=== PATIENT | female | born 1950 | race Caucasian/White ===

== ENCOUNTER 2023-01-05 06:55 | Inpatient (IN) | payer BC ==
[2022-12-29 15:35] LABS: BASOPHILS % (AUTO) 0.4 % (0-1); EOSINOPHILS # (AUTO) 0.2 X10'3 (0-0.9); EOSINOPHILS % (AUTO) 2.5 % (0-6); LYMPHOCYTES # (AUTO) 1.3 X10'3 (1.1-4.8); LYMPHOCYTES % (AUTO) 19.1 % (21-51); MEAN CORPUSCULAR HEMOGLOBIN 31.5 PG (27.0-31.0); MEAN CORPUSCULAR HGB CONC 33.1 g/dL (33.0-36.5); MONOCYTES # (AUTO) 0.8 X10'3 (0-0.9); MONOCYTES % (AUTO) 11.7 % (2-12); NEUTROPHILS # (AUTO) 4.4 X10'3 (1.8-7.7); NEUTROPHILS % (AUTO) 66.3 % (42-75); PRE OP HEMATOCRIT 44.8 % (35.0-45.0); PRE OP HEMOGLOBIN 14.9 g/dL (12.0-16.0); PRE OP PLATELET COUNT 160 X10'3 (140-440); PRE OP WHITE BLOOD COUNT 6.6 10'3 (4.8-10.8); RED BLOOD COUNT 4.72 X10'6 (4.20-5.60); RED CELL DISTRIBUTION WIDTH 13.5 % (11.5-14.5)
[2022-12-29 15:55] LABS: ALBUMIN 3.8 G/DL (3.4-5.0); ALKALINE PHOSPHATASE 79 IU/L (46-116); BLOOD UREA NITROGEN 11 MG/DL (7-18); BUN/CREATININE RATIO 15.9 (10.0-20.0); CALCIUM 9.4 MG/DL (8.5-10.1); CHLORIDE 103 MMOL/L (99-107); CREATININE 0.69 MG/DL (0.40-0.90); PRE OP ALT 16 U/L (30-65); PRE OP ANION GAP 8 (8-16); PRE OP AST 13 U/L (10-37); PRE OP BILIRUB, TOTAL 0.5 MG/DL (0.0-1.0); PRE OP GLUCOSE 100 MG/DL (70-104); PRE OP POTASSIUM 4.4 MMOL/L (3.4-5.1); PRE OP SODIUM 142 MMOL/L (135-145); THYROID STIMULATING HORMONE 0.68 ulU/ml (0.34-4.50); TOTAL CARBON DIOXIDE 30.6 MMOL/L (24-32); TOTAL PROTEIN 7.5 G/DL (6.4-8.2); eGFR 84 ML/MIN
[~2023-01-05] VITALS: Ht 167.6 cm; Wt 118.3 kg
[2023-01-05] VITALS (29 sets, daily range): BP systolic 97–128; BP diastolic 61–98; PULSE 61–103; RESP 10–24; TEMP 96.7–98.6; O2SAT 61–97
[~2023-01-05 06:55] MED LIST: ALBU8HFA PO; CELE200C PO; CHOL100046 PO; CITA20TA28 PO; GABA300C PO; LEVO175T7 PO; MVI; OXYB5TAB29 PO; clindamycin-Cleocin 900mg/D5W 50 ML IV ONE; famotidine 20mg tablet PO ONE; gentamicin inj 430 MG in normal saline 100ml IV soln 89.25 ML IV ONE; ringers solution, lacted 1,000 ML IV SCH
[2023-01-05] MEDS ORDERED: LIDOcaine 1% 30ml preserv. free vial ONE (09:06)
[2023-01-05] MEDS ORDERED: BUPIVAcaine/PF 2.5 mg/ml (0.25%) 30ml vial ONE (09:06)
[2023-01-05] MEDS ORDERED: sevoflurane 250ml liquid IH ONE (09:16)
[2023-01-05] MEDS ORDERED: PHENYLephrine 10mg/ml 5ml injection IV ONE (09:16)
[2023-01-05] MEDS ORDERED: dexamethasone sod phosphate 10mg/ml inj ONE (09:16)
[2023-01-05] MEDS ORDERED: dexmedetomidine 200mcg/2ml inj. IV ONE (09:16)
[2023-01-05] MEDS ORDERED: midazolam 1 mg/ML 2ml injection ONE (09:24)
[2023-01-05] MEDS ORDERED: fentaNYL/PF 50MCG/1 ML 2ML syringe ONE ×2 (09:24→11:17)
[2023-01-05] MEDS ORDERED: rocuronium 10mg/ml inj IV ONE ×2 (09:30→10:30)
[2023-01-05] MEDS ORDERED: ondansetron/PF 4mg/2ml inj ONE (09:30)
[2023-01-05] MEDS ORDERED: propofol inj 20 ML IV ONE (09:30)
[2023-01-05] MEDS ORDERED: LIDOcaine 2% (20mg/ml) 5ml vial ONE (09:30)
[2023-01-05] MEDS ORDERED: sugammadex 200mg/2ml injection IV ONE (09:54)
[2023-01-05] MEDS ORDERED: morphine 4 MG/ML inj SYRINge IV PRN (10:05)
[2023-01-05] MEDS ORDERED: ondansetron/PF 4mg/2ml inj IV PRN (10:05)
[2023-01-05] MEDS ORDERED: morphine 2 MG/ML inj. syringe IV PRN (10:05)
[2023-01-05] MEDS ORDERED: ringers solution, lacted 1,000 ML IV SCH (10:05)
[2023-01-05] MEDS ORDERED: enalaprilat dihydrate 2.5mg/2ml vial IV PRN (10:05)
[2023-01-05] MEDS ORDERED: fentaNYL/PF 50MCG/1 ML 2ML syringe IV PRN ×2 (10:05)
[2023-01-05] MEDS ORDERED: hydrALAZINE 20mg/ml inj. IV PRN (10:05)
[2023-01-05] MEDS ORDERED: ePHEDrine 50MG/ML INJ. ONE (10:07)
[2023-01-05] MEDS ORDERED: INDOCYANINE GREEN 25 MG/10 ML VIAL IV ONE (11:33)
[2023-01-05] MEDS ORDERED: naloxone 0.4 mg/ml inj IV PRN (13:00)
[2023-01-05] MEDS ORDERED: HYDROcodone/acetaminophen 5mg/325mg tablet PO PRN (13:00)
[2023-01-05] MEDS ORDERED: albuterol 2.5 MG/3 ML nebule NEB PRN (13:20)
--- NOTE | 2023-01-05 17:03 | NUR ---
PATIENT HAS MET ALL CRITERIA FOR TRANSFER TO THE SURGICAL/RAUL/PCU/ORTHO/ICU FLOOR. VSS. DRESSINGS INTACT. BED LOW, CALL LIGHT PRESENT AND 2 RAILS UP. RN PRESENT TO ACCEPT CARE OF PATIENT AND REPORT HAS BEEN CALLED. ALL QUESTIONS ANSWERED TO ACCEPTING RN.
--- NOTE | 2023-01-05 17:03 | NUR ---
PATIENT HAS MET ALL CRITERIA FOR TRANSFER TO ORTHO FLOOR. VSS. DRESSINGS INTACT. BED LOW, CALL LIGHT PRESENT AND 2 RAILS UP. RN PRESENT TO ACCEPT CARE OF PATIENT AND REPORT HAS BEEN CALLED. ALL QUESTIONS ANSWERED TO ACCEPTING RN. Addendum: 01/05/23 at 1709 by Chris Marquez RN Amended: Links added.
--- NOTE | 2023-01-05 17:30 | NUR ---
Patient in room ORTHO 4013. I have received report from recovery and had the opportunity to ask questions and assume patient care.
[2023-01-05] MEDS: ringers solution, lacted 1,000 ML IV SCH ×2 (18:55→22:59)
--- NOTE | 2023-01-05 19:02 | NUR ---
Problems reprioritized. Patient report given, questions answered & plan of care reviewed with Frances EMANUEL.
[2023-01-05] MEDS: gabapentin 300mg capsule PO SCH (21:23)
[2023-01-05] MEDS: HYDROcodone/acetaminophen 10/325mg tab PO PRN (21:27)
[2023-01-06] VITALS (8 sets, daily range): BP systolic 101–125; BP diastolic 48–66; PULSE 81–99; RESP 15–19; TEMP 97.7–98.6; O2SAT 90–97
--- NOTE | 2023-01-06 06:39 | NUR ---
Problems reprioritized. Patient report given, questions answered & plan of care reviewed with Sania EMANUEL. Addendum: 01/06/23 at 0639 by Frances Sharpe RN Amended: Links added.
--- NOTE | 2023-01-06 06:55 | NUR ---
Patient in room ORTHO 4013. I have received report from carla EMANUEL and had the opportunity to ask questions and assume patient care.
[2023-01-06 07:15] LABS: BASOPHILS % (AUTO) 0.1 % (0-1); EOSINOPHILS % (AUTO) 0 % (0-6); HEMATOCRIT 39.4 % (35.0-45.0); HEMOGLOBIN 12.8 g/dl (12.0-16.0); LYMPHOCYTES # (AUTO) 0.9 X10'3 (1.1-4.8); LYMPHOCYTES % (AUTO) 5.8 % (21-51); MEAN CORPUSCULAR HEMOGLOBIN 31.3 PG (27.0-31.0); MEAN CORPUSCULAR HGB CONC 32.6 g/dL (33.0-36.5); MEAN CORPUSCULAR VOLUME 96.1 FL (78-98); MEAN PLATELET VOLUME 9.1 FL (7.4-10.4); MONOCYTES # (AUTO) 1.6 X10'3 (0-0.9); MONOCYTES % (AUTO) 10.6 % (2-12); NEUTROPHILS # (AUTO) 12.6 X10'3 (1.8-7.7); NEUTROPHILS % (AUTO) 83.5 % (42-75); PLATELET COUNT 138 X10'3 (140-440); RED CELL DISTRIBUTION WIDTH 13.4 % (11.5-14.5); WHITE BLOOD COUNT 15.1 X10'3 (4.5-11.0)
[2023-01-06 07:32] LABS: ANION GAP 6 (8-16); BLOOD UREA NITROGEN 10 MG/DL (7-18); BUN/CREATININE RATIO 15.6 (10.0-20.0); CALCIUM 8.5 MG/DL (8.5-10.1); CHLORIDE 102 MMOL/L (99-107); CREATININE 0.64 MG/DL (0.40-0.90); GLUCOSE 123 MG/DL (70-104); POTASSIUM 4.7 MMOL/L (3.5-5.1); SODIUM 142 MMOL/L (135-145); TOTAL CARBON DIOXIDE 34.5 MMOL/L (24-32); eCRCL 77 ML/MIN; eGFR > 90 ML/MIN
[2023-01-06] MEDS: citalopram 20mg tablet PO SCH (08:46)
[2023-01-06] MEDS: enoxaparin 40mg/0.4ml syringe SQ SCH (08:47)
[2023-01-06] MEDS ORDERED: HYDR-3964 PO (08:55)
[2023-01-06] MEDS: ringers solution, lacted 1,000 ML IV SCH ×2 (09:00→20:16)
[2023-01-06] MEDS: levoTHYROXINE 175mcg tablet PO SCH (13:01)
[2023-01-06] MEDS: HYDROcodone/acetaminophen 10/325mg tab PO PRN ×2 (13:07→20:17)
[2023-01-06] MEDS ORDERED: HYDROmorphone 1 mg/ml syringe IV PRN (15:50)
[2023-01-06] MEDS ORDERED: HYDROmorphone inj. 0.5 MG/0.5 ML DISP.SYRIN IV PRN (18:45)
--- NOTE | 2023-01-06 18:48 | NUR ---
patient encouraged and managed to ambulate 150ft. Very painful. Order got from Dr warner for dilaudid 1mg. Patient received med and fell asleep. O2 sats dropped in 70's ,. recovered quickly when woken up and given o2@6L. 95%. turned down to 4L currently as napping. O2 sats 94%. Patient appears stable at this time. report given to carla EMANUEL Addendum: 01/06/23 at 1851 by Sania Phan RN wrong patient Addendum: 01/06/23 at 185 by Sania Phan RN correction right patient for above note.
--- NOTE | 2023-01-06 18:54 | NUR ---
correction to previous note this was the right patient .
[2023-01-06] MEDS: gabapentin 300mg capsule PO SCH (20:16)
[2023-01-07] VITALS (9 sets, daily range): BP systolic 105–125; BP diastolic 56–73; PULSE 86–103; RESP 16–20; TEMP 97.3–98.2; O2SAT 92–98
--- NOTE | 2023-01-07 04:00 | NUR ---
Pts IV on left had infiltrated while pt was sleeping. IV removed, hand puffy which was elevated on a pillow. CSM present. Pt refuses to have a new IV placed at this time. Addendum: 01/07/23 at 0653 by Frances Sharpe RN Amended: Links added.
[2023-01-07] MEDS: ringers solution, lacted 1,000 ML IV SCH ×2 (05:00→15:00)
[2023-01-07 06:37] LABS: BASOPHILS % (AUTO) 0.2 % (0-1); EOSINOPHILS # (AUTO) 0.1 X10'3 (0-0.9); EOSINOPHILS % (AUTO) 0.6 % (0-6); HEMATOCRIT 37.5 % (35.0-45.0); HEMOGLOBIN 12.4 g/dl (12.0-16.0); LYMPHOCYTES % (AUTO) 9.5 % (21-51); MEAN CORPUSCULAR HEMOGLOBIN 31.8 PG (27.0-31.0); MEAN CORPUSCULAR HGB CONC 33.2 g/dL (33.0-36.5); MEAN CORPUSCULAR VOLUME 95.9 FL (78-98); MEAN PLATELET VOLUME 9.5 FL (7.4-10.4); MONOCYTES # (AUTO) 1.5 X10'3 (0-0.9); MONOCYTES % (AUTO) 13.9 % (2-12); NEUTROPHILS # (AUTO) 8.3 X10'3 (1.8-7.7); NEUTROPHILS % (AUTO) 75.8 % (42-75); PLATELET COUNT 128 X10'3 (140-440); RED BLOOD COUNT 3.91 X10'6 (4.20-5.60); RED CELL DISTRIBUTION WIDTH 13.4 % (11.5-14.5)
--- NOTE | 2023-01-07 06:39 | NUR ---
Patient in room ORTHO 4013. I have received report from [employer] and had the opportunity to ask questions and assume patient care.
[2023-01-07 06:40] LABS: ALBUMIN 2.9 G/DL (3.4-5.0); ANION GAP 1 (8-16); BLOOD UREA NITROGEN 8 MG/DL (7-18); BUN/CREATININE RATIO 11.6 (10.0-20.0); CALCIUM 8.6 MG/DL (8.5-10.1); CHLORIDE 100 MMOL/L (99-107); CREATININE 0.69 MG/DL (0.40-0.90); GLUCOSE 114 MG/DL (70-104); POTASSIUM 4.2 MMOL/L (3.5-5.1); SODIUM 138 MMOL/L (135-145); TOTAL CARBON DIOXIDE 36.7 MMOL/L (24-32); eCRCL 71 ML/MIN; eGFR 84 ML/MIN
--- NOTE | 2023-01-07 06:45 | NUR ---
Problems reprioritized. Patient report given, questions answered & plan of care reviewed with Sabra EMANUEL. Addendum: 01/07/23 at 0645 by Frances Sharpe RN Amended: Links added.
[2023-01-07] MEDS: levoTHYROXINE 175mcg tablet PO SCH (07:46)
[2023-01-07] MEDS: enoxaparin 40mg/0.4ml syringe SQ SCH (07:46)
[2023-01-07] MEDS: citalopram 20mg tablet PO SCH (07:46)
[2023-01-07] MEDS: HYDROcodone/acetaminophen 10/325mg tab PO PRN ×2 (14:06→19:48)
[2023-01-07] MEDS: gabapentin 300mg capsule PO SCH (19:48)
[2023-01-08] VITALS (10 sets, daily range): BP systolic 98–153; BP diastolic 44–94; PULSE 57–90; RESP 15–20; TEMP 97.4–99.2; O2SAT 94–99
--- NOTE | 2023-01-08 06:00 | NUR ---
Patient in room ORTHO 4013. I have received report from [employer] and had the opportunity to ask questions and assume patient care.
--- NOTE | 2023-01-08 06:11 | NUR ---
Problems reprioritized. Patient report given, questions answered & plan of care reviewed with Sabra Gregory Addendum: 01/08/23 at 0612 by Frances Sharpe RN Amended: Links added.
[2023-01-08 06:40] LABS: BASOPHILS % (AUTO) 0.4 % (0-1); EOSINOPHILS # (AUTO) 0.2 X10'3 (0-0.9); EOSINOPHILS % (AUTO) 1.9 % (0-6); HEMATOCRIT 37.9 % (35.0-45.0); HEMOGLOBIN 12.6 g/dl (12.0-16.0); LYMPHOCYTES # (AUTO) 0.9 X10'3 (1.1-4.8); LYMPHOCYTES % (AUTO) 9.5 % (21-51); MEAN CORPUSCULAR HEMOGLOBIN 31.7 PG (27.0-31.0); MEAN CORPUSCULAR HGB CONC 33.2 g/dL (33.0-36.5); MEAN CORPUSCULAR VOLUME 95.4 FL (78-98); MEAN PLATELET VOLUME 9.6 FL (7.4-10.4); MONOCYTES # (AUTO) 1.2 X10'3 (0-0.9); MONOCYTES % (AUTO) 12.4 % (2-12); NEUTROPHILS # (AUTO) 7.4 X10'3 (1.8-7.7); NEUTROPHILS % (AUTO) 75.8 % (42-75); PLATELET COUNT 128 X10'3 (140-440); RED BLOOD COUNT 3.97 X10'6 (4.20-5.60); RED CELL DISTRIBUTION WIDTH 13.1 % (11.5-14.5); WHITE BLOOD COUNT 9.7 X10'3 (4.5-11.0)
[2023-01-08 06:51] LABS: ALBUMIN 2.8 G/DL (3.4-5.0); ANION GAP 4 (8-16); BLOOD UREA NITROGEN 7 MG/DL (7-18); BUN/CREATININE RATIO 12.3 (10.0-20.0); CALCIUM 8.9 MG/DL (8.5-10.1); CHLORIDE 102 MMOL/L (99-107); CREATININE 0.57 MG/DL (0.40-0.90); GLUCOSE 113 MG/DL (70-104); SODIUM 142 MMOL/L (135-145); TOTAL CARBON DIOXIDE 36.1 MMOL/L (24-32); eCRCL 86 ML/MIN; eGFR > 90 ML/MIN
[2023-01-08 06:56] LABS: POTASSIUM 4.2 MMOL/L (3.5-5.1)
[2023-01-08] MEDS: ringers solution, lacted 1,000 ML IV SCH (06:56)
[2023-01-08] MEDS: levoTHYROXINE 175mcg tablet PO SCH (09:37)
[2023-01-08] MEDS: citalopram 20mg tablet PO SCH (09:37)
[2023-01-08] MEDS: enoxaparin 40mg/0.4ml syringe SQ SCH (09:37)
[2023-01-08] MEDS: HYDROcodone/acetaminophen 10/325mg tab PO PRN ×3 (09:40→20:18)
--- NOTE | 2023-01-08 18:07 | NUR ---
Problems reprioritized. Patient report given, questions answered & plan of care reviewed with
[2023-01-08] MEDS: gabapentin 300mg capsule PO SCH (20:14)
[2023-01-09] VITALS (7 sets, daily range): BP systolic 100–120; BP diastolic 49–73; PULSE 62–117; RESP 16–22; TEMP 97.4–98.8; O2SAT 94–98
[2023-01-09] MEDS: HYDROcodone/acetaminophen 10/325mg tab PO PRN (03:46)
--- NOTE | 2023-01-09 06:22 | NUR ---
Problems reprioritized. Patient report given, questions answered & plan of care reviewed with WAYLON SCHREIBER.
--- NOTE | 2023-01-09 06:33 | NUR ---
Patient in room ORTHO 4013. I have received report from ADELFO Soto and had the opportunity to ask questions and assume patient care.
[2023-01-09 07:02] LABS: BASOPHILS % (AUTO) 0.3 % (0-1); EOSINOPHILS # (AUTO) 0.1 X10'3 (0-0.9); EOSINOPHILS % (AUTO) 0.9 % (0-6); HEMATOCRIT 41.2 % (35.0-45.0); HEMOGLOBIN 13.7 g/dl (12.0-16.0); LYMPHOCYTES # (AUTO) 0.6 X10'3 (1.1-4.8); LYMPHOCYTES % (AUTO) 5.5 % (21-51); MEAN CORPUSCULAR HEMOGLOBIN 31.6 PG (27.0-31.0); MEAN CORPUSCULAR HGB CONC 33.3 g/dL (33.0-36.5); MEAN CORPUSCULAR VOLUME 94.9 FL (78-98); MEAN PLATELET VOLUME 10.3 FL (7.4-10.4); MONOCYTES # (AUTO) 1.4 X10'3 (0-0.9); MONOCYTES % (AUTO) 13.4 % (2-12); NEUTROPHILS # (AUTO) 8.5 X10'3 (1.8-7.7); NEUTROPHILS % (AUTO) 79.9 % (42-75); PLATELET COUNT 158 X10'3 (140-440); RED BLOOD COUNT 4.34 X10'6 (4.20-5.60); WHITE BLOOD COUNT 10.6 X10'3 (4.5-11.0)
[2023-01-09 07:20] LABS: ALBUMIN 2.9 G/DL (3.4-5.0); ANION GAP 4 (8-16); BLOOD UREA NITROGEN 8 MG/DL (7-18); BUN/CREATININE RATIO 12.5 (10.0-20.0); CALCIUM 9.5 MG/DL (8.5-10.1); CHLORIDE 101 MMOL/L (99-107); CREATININE 0.64 MG/DL (0.40-0.90); GLUCOSE 144 MG/DL (70-104); POTASSIUM 3.5 MMOL/L (3.5-5.1); SODIUM 140 MMOL/L (135-145); TOTAL CARBON DIOXIDE 35.1 MMOL/L (24-32); eCRCL 77 ML/MIN; eGFR > 90 ML/MIN
[2023-01-09] MEDS: levoTHYROXINE 175mcg tablet PO SCH (08:12)
[2023-01-09] MEDS: citalopram 20mg tablet PO SCH (08:12)
[2023-01-09] MEDS: enoxaparin 40mg/0.4ml syringe SQ SCH (08:13)
[2023-01-09] MEDS: ketorolac tromethamine 15mg/ml inj. IV SCH ×2 (15:10→20:38)
--- NOTE | 2023-01-09 18:00 | NUR ---
I have reviewed and agree with interventions, assessments, and documentation by Raul Spivey LVN.
--- NOTE | 2023-01-09 19:45 | NUR ---
Agree with Marivel Javier LVn physical assessment.
[2023-01-09] MEDS: gabapentin 300mg capsule PO SCH (20:09)
[2023-01-10] VITALS (9 sets, daily range): BP systolic 91–118; BP diastolic 42–73; PULSE 74–98; RESP 16–19; TEMP 97.9–98.9; O2SAT 93–96
[2023-01-10] MEDS: ketorolac tromethamine 15mg/ml inj. IV SCH ×4 (02:06→21:14)
--- NOTE | 2023-01-10 04:40 | NUR ---
Patient in room ORTHO 4013. I have received report from Raul CONNORS and had the opportunity to ask questions and assume patient care.
--- NOTE | 2023-01-10 04:46 | NUR ---
Problems reprioritized. Patient report given, questions answered & plan of care reviewed with WAYLON Sanders.
[2023-01-10 06:29] LABS: BASOPHILS % (AUTO) 0.4 % (0-1); EOSINOPHILS # (AUTO) 0.4 X10'3 (0-0.9); EOSINOPHILS % (AUTO) 4.3 % (0-6); HEMATOCRIT 38.9 % (35.0-45.0); HEMOGLOBIN 12.9 g/dl (12.0-16.0); LYMPHOCYTES % (AUTO) 11.7 % (21-51); MEAN CORPUSCULAR HEMOGLOBIN 31.2 PG (27.0-31.0); MEAN CORPUSCULAR HGB CONC 33.1 g/dL (33.0-36.5); MEAN CORPUSCULAR VOLUME 94.3 FL (78-98); MEAN PLATELET VOLUME 9.8 FL (7.4-10.4); MONOCYTES % (AUTO) 12.1 % (2-12); NEUTROPHILS # (AUTO) 6.2 X10'3 (1.8-7.7); NEUTROPHILS % (AUTO) 71.5 % (42-75); PLATELET COUNT 156 X10'3 (140-440); RED BLOOD COUNT 4.12 X10'6 (4.20-5.60); WHITE BLOOD COUNT 8.6 X10'3 (4.5-11.0)
[2023-01-10 06:36] LABS: ALBUMIN 2.7 G/DL (3.4-5.0); ANION GAP 3 (8-16); BLOOD UREA NITROGEN 12 MG/DL (7-18); BUN/CREATININE RATIO 16.2 (10.0-20.0); CHLORIDE 103 MMOL/L (99-107); CREATININE 0.74 MG/DL (0.40-0.90); GLUCOSE 106 MG/DL (70-104); POTASSIUM 3.6 MMOL/L (3.5-5.1); SODIUM 141 MMOL/L (135-145); TOTAL CARBON DIOXIDE 34.7 MMOL/L (24-32); eCRCL 66 ML/MIN; eGFR 78 ML/MIN
[2023-01-10] MEDS: levoTHYROXINE 175mcg tablet PO SCH (07:35)
[2023-01-10] MEDS: citalopram 20mg tablet PO SCH (07:35)
[2023-01-10] MEDS: enoxaparin 40mg/0.4ml syringe SQ SCH (07:36)
--- NOTE | 2023-01-10 12:28 | NUR ---
Initial: Pt is currently POD #4 s/p laparoscopic right hemicolectomy for colorectal cancer per EMR. Pt is continues on a full liquid diet with average PO intake of 50-75% for 5 meals. Pt seen at bedside and states she is hungry and would like solid food however is agreeable to drinking chocolate Ensure TIDWM to better meet estimated needs; MD notified. Pt states her lack of appetite may be due to her current medication and feeling sleepy often. LBM on 01/10 per EMR. Will continue to monitor and make recommendations as appropriate. Recommendations: 1.Advance diet as medically able to low fiber diet 2.Ensure Enlive Chocolate TIDWM; pending physician approval 3.Bowel care per physician 4.Weekly wts Addendum: 01/10/23 at [address] Amended: Links added.
[2023-01-10] MEDS ORDERED: lactose-reduced food (Ensure Enlive) - 237ml bottle PO SCH (13:00)
--- NOTE | 2023-01-10 14:00 | NUR ---
Fran't able to give this patient her toradol due to charge nurse having patients. Gave patient PO pain medication in stead
[2023-01-10] MEDS: HYDROcodone/acetaminophen 10/325mg tab PO PRN ×2 (16:08→21:14)
--- NOTE | 2023-01-10 18:46 | NUR ---
Problems reprioritized. Patient report given, questions answered & plan of care reviewed with Za Vaca
--- NOTE | 2023-01-10 18:48 | NUR ---
Patient in room ORTHO 4013. I have received report from WAYLON Sanders and had the opportunity to ask questions and assume patient care. Patient resting comfortably on bed, just finished dinner and has no concerns at this time. I will continue to monitor.
[2023-01-10] MEDS: gabapentin 300mg capsule PO SCH (21:20)
[2023-01-11] MEDS: ketorolac tromethamine 15mg/ml inj. IV SCH ×2 (02:18→08:32)
[2023-01-11 06:00] VITALS: BP 95/47; PULSE 57; RESP 20; TEMP 97.8; O2SAT 96
--- NOTE | 2023-01-11 06:00 | NUR ---
Patient in room ORTHO 4013. I have received report from Za Paulson RN and had the opportunity to ask questions and assume patient care.
--- NOTE | 2023-01-11 06:23 | NUR ---
Problems reprioritized. Patient report given, questions answered & plan of care reviewed with ADELFO Sanders.
[2023-01-11 07:00] VITALS: RESP 20; O2SAT 96
[2023-01-11] MEDS: enoxaparin 40mg/0.4ml syringe SQ SCH (07:41)
[2023-01-11] MEDS: levoTHYROXINE 175mcg tablet PO SCH (07:41)
[2023-01-11] MEDS: citalopram 20mg tablet PO SCH (07:41)
[2023-01-11 10:00] VITALS: BP 102/68; PULSE 90; RESP 18; TEMP 98.6; O2SAT 94
[2023-01-11 10:47] VITALS: PULSE 86; RESP 16; O2SAT 92
--- NOTE | 2023-01-11 11:30 | NUR ---
I have reviewed and agree with interventions, assessments, and documentation by Marilyn Zamora LVN.
--- NOTE | 2023-01-11 12:30 | NUR ---
Patient discharged home today. All instructions were explained and questions answered. IV removed and all belongings were gathered. Patient A&Ox4 and appropriate for discharge. Patient wheeled downstairs and into private vehicle.
== END 2023-01-11 12:50 | disposition home or self-care (01) | DRG 330 ==
LOC: PAS IN 06:55 → ORTHO 4S 17:25
PROVIDERS: ADMIT Surgery; ATTEND Surgery
PROC: 0WQF0ZZ Repair Abdominal Wall, Open Approach (ICD-10-PCS; 2023-01-05)
PROC: 8E0W4CZ Robotic Assisted Procedure of Trunk Region, Percutaneous Endoscopic Approach (ICD-10-PCS; 2023-01-05)
PROC: 0DTF4ZZ Resection of Right Large Intestine, Percutaneous Endoscopic Approach (ICD-10-PCS; principal; 2023-01-05 09:16)
DX: C18.2 Malignant neoplasm of ascending colon (principal); Z68.41 Body mass index [BMI] 40.0-44.9, adult; K42.9 Umbilical hernia without obstruction or gangrene; R09.02 Hypoxemia; Z79.899 Other long term (current) drug therapy; E66.01 Morbid (severe) obesity due to excess calories
CPT/HCPCS: 36415; 74018; 80048; 80053; 82948; 84443; 85025; 86885; 86900; 86901; 87081; 88309; 94640; 94760; 97530; 97535; A4215; A4349; A4615; A4618; A5200; A6212; A6213; A6258; A6449; C1758; G0378; J1100; J1170; J1580; J1650; J1885; J2250; J2270; J2370; J2405; J2704; J3010; J3490; J7120

== ENCOUNTER 2023-10-13 13:09 | Emergency (ER) | payer BC ==
[~2023-10-13] VITALS: Ht 167.6 cm; Wt 119.1 kg
[~2023-10-13 13:09] MED LIST changes: +HYDR-3964 PO; -clindamycin-Cleocin 900mg/D5W 50 ML IV ONE; -famotidine 20mg tablet PO ONE; -gentamicin inj 430 MG in normal saline 100ml IV soln 89.25 ML IV ONE; -ringers solution, lacted 1,000 ML IV SCH
[2023-10-13 13:29] VITALS: TEMP 98.6
[2023-10-13 13:56] LABS: BASOPHILS % (AUTO) 0.5 % (0-1); EOSINOPHILS # (AUTO) 0.2 X10'3 (0-0.9); EOSINOPHILS % (AUTO) 2.6 % (0-6); HEMATOCRIT 45.2 % (35.0-45.0); LYMPHOCYTES # (AUTO) 1.1 X10'3 (1.1-4.8); LYMPHOCYTES % (AUTO) 17.3 % (21-51); MEAN CORPUSCULAR HEMOGLOBIN 32.1 PG (27.0-31.0); MEAN CORPUSCULAR HGB CONC 33.3 g/dL (33.0-36.5); MEAN CORPUSCULAR VOLUME 96.5 FL (78-98); MEAN PLATELET VOLUME 8.9 FL (7.4-10.4); MONOCYTES # (AUTO) 0.7 X10'3 (0-0.9); MONOCYTES % (AUTO) 11.3 % (2-12); NEUTROPHILS # (AUTO) 4.4 X10'3 (1.8-7.7); NEUTROPHILS % (AUTO) 68.3 % (42-75); PLATELET COUNT 153 X10'3 (140-440); RED BLOOD COUNT 4.68 X10'6 (4.20-5.60); RED CELL DISTRIBUTION WIDTH 13.1 % (11.5-14.5); WHITE BLOOD COUNT 6.5 X10'3 (4.5-11.0)
[2023-10-13 14:18] LABS: ALBUMIN 3.7 G/DL (3.4-5.0); ANION GAP 6 (8-16); BLOOD UREA NITROGEN 13 MG/DL (7-18); CALCIUM 9.5 MG/DL (8.5-10.1); CHLORIDE 104 MMOL/L (99-107); CREATININE 0.59 MG/DL (0.40-0.90); GLUCOSE 104 MG/DL (70-104); POTASSIUM 3.9 MMOL/L (3.5-5.1); PRO BRAIN NATRIURETIC PEPTIDE 113 PG/ML (0-125); SODIUM 140 MMOL/L (135-145); TOTAL CARBON DIOXIDE 29.6 MMOL/L (24-32); eCRCL 82 ML/MIN; eGFR > 90 ML/MIN
[2023-10-13 17:44] LABS: D-DIMER 0.87 MG/L FEU (0-0.50)
[2023-10-13] MEDS ORDERED: iohexol 350MG/ML 100ml bottle IV ONE (18:02)
[2023-10-13 21:10] VITALS: BP 126/92; PULSE 78; RESP 16; O2SAT 91
== END 2023-10-13 21:08 | disposition home or self-care (01) ==
LOC: ER 13:10
DX: R94.31 Abnormal electrocardiogram [ECG] [EKG] (principal); G47.33 Obstructive sleep apnea (adult) (pediatric); R79.1 Abnormal coagulation profile; Z88.0 Allergy status to penicillin; Z79.2 Long term (current) use of antibiotics; Z79.899 Other long term (current) drug therapy
CPT/HCPCS: 36415; 71045; 71275; 80048; 83880; 84484; 85025; 85379; 93005; 99285; J3490; Q9967

== ENCOUNTER 2025-04-07 11:14 | Emergency (ER) | payer BC ==
[~2025-04-07] VITALS: Ht 167.6 cm; Wt 112.4 kg
[~2025-04-07 11:14] MED LIST changes: +CITA-178 PO; -CITA20TA28 PO
[2025-04-07 11:22] VITALS: TEMP 97.2
[2025-04-07 12:23] LABS: MEAN PLATELET VOLUME 8.9 FL (7.4-10.4); RED CELL DISTRIBUTION WIDTH 13.0 % (11.5-14.5)
[2025-04-07 12:39] LABS: CREATININE 0.81 MG/DL (0.40-0.90); TOTAL CARBON DIOXIDE 32.2 MMOL/L (24-32); eCRCL 59 ML/MIN; eGFR 70 ML/MIN
[2025-04-07] MEDS: normal saline 1000ml 1,000 ML IV ONE (14:20)
[2025-04-07] MEDS ORDERED: iohexol 300mg/ml 100ml inj. ONE (14:29)
[2025-04-07] MEDS: ondansetron/PF 4mg/2ml inj IV ONE (15:25)
[2025-04-07] MEDS: morphine 4 MG/ML inj SYRINge IV ONE (15:26)
--- NOTE | 2025-04-07 16:16 | RADIOLOGY REPORT ---
Indication: SBO Technique: CT axial images of the abdomen and pelvis are obtained with intravenous contrast. Coronal and sagittal reformats were obtained. Radiation Dose Information: CTDI volume is 37 mGy. Dose-length product is 1947 mGy*cm Comparison: None FINDINGS: Lung bases demonstrate atelectasis. Cardiomegaly.m Adrenal glands, spleen unremarkable. Fatty infiltration of the pancreas. Cholecystectomy. No enhancing hepatic lesion. Left hepatic lobe cyst measuring 1 cm.1 The kidneys demonstrate no hydronephrosis. Stomach partially distended. Small bowel loops are normal in caliber. Colonic diverticular disease. Bowel wall thickening with surrounding stranding involving the distal descending and proximal sigmoid colon. Ascending hemicolectomy. Abdominal aortic atherosclerotic disease. Bladder is partially distended. No free pelvic fluid. No inguinal lymphadenopathy. [id number] bilateral sacroiliac degenerative joint disease. Moderate to advanced lumbar degenerative disc disease most pronounced at L3-4. Fat containing paraumbilical hernia measuring 3 x 2.8 cm. IMPRESSION: Diverticulitis of the distal descending / proximal sigmoid colon. Recommend colonoscopy once acute symptoms resolve to exclude underlying colonic lesion. Other findings as described.
--- NOTE | 2025-04-07 16:42 | Physician Documentation ---
History of Present Illness Chief Complaint: Back Pain Stated Complaint: BACK PAIN Time Seen by MD: 13:50 Mode of Arrival: Ambulatory HPI 74-year-old female presents to the emergency department complaint of left lower abdominal wall and left lower back pain. Reports her back pain is chronic in nature. Left lower abdominal pain is not associated with fevers or nausea and vomiting. Reports two years ago she had a bowel resection due to cancerous lesion. Has not had follow up since that time. There has been no change in her bowel character caliber. Medication Reconciliation Allergies: Coded Allergies: Penicillins (Verified Allergy, Unknown, ANAPHYLAXIS, 04/07/25) Uncoded Allergies: HAYFEVER (Allergy, Unknown, 01/04/23) Scheduled Celecoxib (Celebrex), 1 CAP PO BID, (Reported) Cholecalciferol (Vitamin D3) (Vitamin D3), 1 CAP PO DAILY, (Reported) Ciprofloxacin HCl (Ciprofloxacin HCl), 1 TAB PO BID Citalopram Hydrobromide* (Celexa*), 1 TAB PO DAILY, (Reported) Gabapentin (Neurontin), 300 MG PO HS, (Reported) Hydrocodone Bit/Acetaminophen 5/325 MG ([place] 5/325 MG), 1 TAB PO Q6H Levothyroxine Sodium (Levothyroxine Sodium), 1 TAB PO DAILY, (Reported) Metronidazole* (Flagyl*), 1 TAB PO Q12H Oxybutynin Chloride (Ditropan Xl), 1 TAB PO DAILY, (Reported) Scheduled PRN Hydrocodone Bit/Acetaminophen (Hydrocodon-Acetaminophen 5-325), 1 TAB PO Q4H PRN for MODERATE PAIN 4-6 albuterol inhaler (Pro-Air Inhaler), 1-2 PUFFS PO Q4H PRN for shortness of breath, (Reported) Miscellaneous Medications [Mvi], (Reported) Past Medical History Past Medical History: Sleep Apnea, Colon Cancer Past Surgical History: colectomy Drug Use: none Lives In: Home Review of Systems All Other Systems at this time: Reviewed and Negative Gastrointestinal: Reports: see HPI, nausea Physical Exam Vital Signs: RN Vital Signs have been reviewed: Yes, Temperature: 97.2, Source: Temporal, Heart Rate: 60, Respiratory Rate: 16, BP: 151/87, Pulse Oximetry: 93, Weight: 112.400 Oxygen Flow Rate: 0 General Appearance: alert, WD/WN, mild distress EENT: PERRL/EOMI Neck: normal inspection Respiratory: lungs clear Chest: no accessory muscle use Cardiovascular: normal peripheral pulses Progress Results/Orders Results/Orders Orders - MANE HARRIS PAC Ct Abdomen Pelvis (04/07/25 15:20) Completed Orders - MANE HARRIS PAC Ct Abdomen Pelvis (04/07/25 15:20) Ondansetron Inj. (Zofran 4mg/2ml Vial) (04/07/25 14:20) Morphine 4mg/Ml Inj. (Morphine Inj.) (04/07/25 14:20) Normal Saline 1000ml (0.9% Sodium Chlori (04/07/25 14:20) Iohexol 300mg/Ml 100ml Inj. (Omnipaque-3 (04/07/25 14:29) Medications Received in ER Medications (Trade) Dose Ordered Sig/Samuel Route PRN Reason Start Time Stop Time Status Last Admin Dose Admin (Zofran 4mg/2ml vial) 4 mg ONCE ONCE IV 04/07/25 14:20 04/07/25 14:22 DC 04/07/25 15:25 4 MG (morphine inj.) 4 mg ONCE ONCE IV 04/07/25 14:20 04/07/25 14:22 DC 04/07/25 15:26 4 MG Sodium Chloride 1,000 ml @ 1,000 mls/hr ONCE ONCE IV 04/07/25 14:20 04/07/25 15:19 DC 04/07/25 14:20 1,000 MLS/HR Vital Signs 04/07/25 04/07/25 04/07/25 04/07/25 11:22 15:26 15:29 16:17 Temp 97.2 Pulse 60 Resp 16 16 16 16 B/P (MAP) 151/87 Pulse Ox 93 O2 Flow Rate 0 Laboratory Tests Test 04/07/25 12:09 White Blood Count 9.1 Red Blood Count 4.70 Hemoglobin 15.3 Hematocrit 44.3 Mean Corpuscular Volume 94.3 Mean Corpuscular Hemoglobin 32.5 H Mean Corpuscular Hemoglobin Concent 34.4 Red Cell Distribution Width 13.0 Platelet Count 202 Mean Platelet Volume 8.9 Neutrophils (%) (Auto) 73.5 Lymphocytes (%) (Auto) 13.6 L Monocytes (%) (Auto) 11.1 Eosinophils (%) (Auto) 1.3 Basophils (%) (Auto) 0.5 Neutrophils # (Auto) 6.7 Lymphocytes # (Auto) 1.2 Monocytes # (Auto) 1.0 H Eosinophils # (Auto) 0.1 Basophils # (Auto) 0.0 CBC Comment Sodium Level 143 Potassium Level 4.3 Chloride Level 104 Carbon Dioxide Level 32.2 H Anion Gap 7 L Blood Urea Nitrogen 9 Creatinine 0.81 Estimated GFR/1.73 m2 70 BUN/Creatinine Ratio 11.1 Glucose Level 118 H Calcium Level 9.7 Total Bilirubin 0.9 Aspartate Amino Transf (AST/SGOT) 22 Alanine Aminotransferase (ALT/SGPT) 30 Alkaline Phosphatase 77 Total Protein 8.1 Albumin 3.9 Globulin 4.2 Albumin/Globulin Ratio 0.9 L Lipase 18 Chemistry Comments Medical Decision Making Additional information obtaine: old records Findings Examination and history warrants CT imaging allow laboratory serology evaluation. Can not exclude bowel obstruction, new tumor mass or acute infectious process. Laboratory screening reassuring for no MARK or leukocytosis. No electrolyte abnormalities. CT imaging reported by the radiologist as diverticulitis with recommendations to obtain colonoscopy after to rule out tumor mass. Patient will receive Cipro and Flagyl IV in the emergency department along with pain management. We will discharge with Cipro and Flagyl and due to known allergy to penicillin. Strict instructions to return in 24-48 hrs if symptoms worsening, develops fever and/or has nausea or vomiting. Discharged normotensive, afebrile with pain while managed without nausea or vomiting. Patient is stable for safe discharge. Differential Dx:Considerations: Aortic dissection, Appendicitis, Bowel obstruction, Constipation, Diverticular disease, Gastroenteritis, Inflammatory BD, Ischemic bowel, Ovarian cyst/torsion, Pancreatitis Departure Disposition: 01 HOME / SELF CARE / HOMELESS Impression: Primary Impression: Diverticulitis Additional Impression: Chronic back pain Qualified Codes: M54.40 - Lumbago with sciatica, unspecified side; G89.29 - Other chronic pain Condition: Improved Discharge Instructions: Diverticulitis Additional Instructions: Please begin antibiotics and pain medicine as directed for diverticulitis. Return to the emergency department if you develop fever or pain isn't resolved. Thank you for visiting [facility]. Referrals: NO PRIMARY CARE PROVIDER (PCP) Prescriptions ONDANSETRON ODT 4mg tablet (ONDANSETRON ODT) 4 Mg Tab.rapdis 1 TAB PO Q6H PRN PRN for nausea/vomiting for 4 Days, #16 TAB 0 Refills Prov: MANE HARRIS 04/07/25 Hydrocodone Bit/Acetaminophen 5/325 MG ([place] 5/325 MG) 5 Mg/325 Mg Tablet 1 TAB PO Q6H, #16 TAB prn pain Prov: MANE HARRIS 04/07/25 Metronidazole* (Flagyl*) 500 Mg Tablet 1 TAB PO Q12H for 7 Days, #20 TAB Prov: MANE HARRIS 04/07/25 Ciprofloxacin HCl (Ciprofloxacin HCl) 500 Mg Tab 1 TAB PO BID, #20 TAB Prov: MANE HARRIS 04/07/25 Education Educated: Patient Educated regarding: diagnosis, treatment, prognosis, need for follow up Signature Scribe Signature: . Attestation: MANE ROSENTHAL Apr 07, 2025 16:42
[2025-04-07] MEDS ORDERED: metroNIDAZOLE-Flagyl 500mg/NS 100 ML IV STA (16:51)
[2025-04-07] MEDS ORDERED: ciprofloxacin lact 400MG/200ML 200 ML IV ONE (16:56)
[2025-04-07] MEDS ORDERED: METR-159 PO (18:02)
[2025-04-07] MEDS ORDERED: HYDR-3965 PO (18:02)
[2025-04-07] MEDS ORDERED: CIPR-458 PO (18:02)
[2025-04-07] MEDS: ciprofloxacin 250mg tablet PO ONE (18:20)
[2025-04-07 18:29] VITALS: BP 117/48; PULSE 85; RESP 16; O2SAT 95
[2025-04-07] MEDS ORDERED: ONDA-243 PO (18:32)
== END 2025-04-07 18:30 | disposition home or self-care (01) ==
LOC: ER 11:15
DX: K57.32 Diverticulitis of large intestine without perforation or abscess without bleeding (principal); G89.29 Other chronic pain; M54.9 Dorsalgia, unspecified; G47.30 Sleep apnea, unspecified; Z88.0 Allergy status to penicillin; Z85.038 Personal history of other malignant neoplasm of large intestine; Z90.49 Acquired absence of other specified parts of digestive tract; Z79.899 Other long term (current) drug therapy
CPT/HCPCS: 36415; 74177; 80053; 83690; 85025; 96361; 96374; 96375; 99285; J2270; J2405; J7030; Q9967

== ENCOUNTER 2025-04-17 15:01 | Emergency (ER) | payer BC ==
[~2025-04-17] VITALS: Ht 165.1 cm; Wt 110.9 kg
[~2025-04-17 15:01] MED LIST changes: +CIPR-458 PO; +HYDR-3965 PO; +ONDA-243 PO
[2025-04-17 15:09] VITALS: TEMP 97.9
[2025-04-17 15:35] LABS: MEAN PLATELET VOLUME 9.1 FL (7.4-10.4); RED CELL DISTRIBUTION WIDTH 13.5 % (11.5-14.5)
[2025-04-17 15:49] LABS: CREATININE 0.83 MG/DL (0.40-0.90); TOTAL CARBON DIOXIDE 25.6 MMOL/L (24-32); eCRCL 54 ML/MIN; eGFR 67 ML/MIN
[2025-04-17] MEDS ORDERED: iohexol 300mg/ml 100ml inj. ONE (17:27)
[2025-04-17 17:28] LABS: LEUKOCYTE ESTERASE ,URINE TRACE (Neg); NITRITES, URINE NEGATIVE (Neg); OCCULT BLOOD,URINE NEGATIVE (Neg)
[2025-04-17 17:32] LABS: UA COLLECTION TYPE CLN CATCH MIDSTREAM
[2025-04-17 17:36] LABS: MUCUS STRANDS FEW /LPF (Neg); SQUAMOUS EPITHELIAL CELL,UR MANY /LPF (FEW)
--- NOTE | 2025-04-17 18:00 | RADIOLOGY REPORT ---
Indication: Suspect obstruction Technique: CT axial images of the abdomen and pelvis are obtained with intravenous contrast. Coronal and sagittal reformats were obtained. Radiation Dose Information: CTDI volume is 37 mGy. Dose-length product is 1881 mGy*cm Comparison: CT CT ABDOMEN PELVIS W/ IV CONTRAST on DOS: 04/07/25 FINDINGS: Cardiomegaly. Bibasilar atelectasis. Adrenal glands, Spleen unremarkable in shape. Fatty infiltration pancreas. Cholecystectomy. 1 cm left hepatic lobe cysts. Kidneys demonstrate no hydronephrosis. Stomach is partially distended. Small bowel loops normal in caliber. Colonic diverticular disease. Hemicolectomy ascending and proximal transverse colon. There is mild wall thickening of the descending and sigmoid colon with surrounding stranding. Abdominal aortic atherosclerotic disease, tortuosity. Bladder partially distended. No free pelvic fluid. No inguinal lymphadenopathy. [id number] bilateral sacroiliac degenerative joint disease. Severe lumbar degenerative disc disease most pronounced at L3-4.4 mm retrolisthesis of L3 upon L4. Moderate to advanced lumbar facet hypertrophic changes. Paraumbilical hernia containing fat measuring 3 x 2.9 cm. IMPRESSION: Bowel wall thickening of the descending and rectosigmoid colon with surrounding stranding which can be seen with colitis, inflammatory bowel disease Hemicolectomy ascending and proximal transverse colon. No evidence for bowel obstruction. Colonic diverticular disease. Cardiomegaly. Cholecystectomy. Other findings as described.
[2025-04-17] MEDS ORDERED: SIME180C61 PO (18:23)
[2025-04-17] MEDS ORDERED: DICY-19 PO (18:23)
--- NOTE | 2025-04-17 18:23 | Physician Documentation ---
History of Present Illness ~ Chief Complaint: Abdominal Pain Stated Complaint: ABD PAIN Time Seen by MD: 16:53 Mode of Arrival: POV HPI 75-year-old female who presents to the emergency department for evaluation of abdominal pain specifically with fluctuance in the excessive burping and bloating. Patient has finished her 10 day course of outpatient antibiotics for non complicated diverticulitis. She does have a past medical history of colon resection secondary carcinoma which was two years ago and has yet to have repeat a colonoscopy. She has a aligned with the primary care physician in his awaiting this repeated colonoscopy. There has been no reported fever, hematochezia, hematemesis or melena stool. Her left lower quadrant pain from a prior visit has resolved. Medication Reconciliation Allergies: Coded Allergies: Penicillins (Verified Allergy, Unknown, ANAPHYLAXIS, 04/17/25) Uncoded Allergies: HAYFEVER (Allergy, Unknown, 01/04/23) Scheduled Celecoxib (Celebrex), 1 CAP PO BID, (Reported) Cholecalciferol (Vitamin D3) (Vitamin D3), 1 CAP PO DAILY, (Reported) Ciprofloxacin HCl (Ciprofloxacin HCl), 1 TAB PO BID Citalopram Hydrobromide* (Celexa*), 1 TAB PO DAILY, (Reported) Gabapentin (Neurontin), 300 MG PO HS, (Reported) Hydrocodone Bit/Acetaminophen 5/325 MG ([place] 5/325 MG), 1 TAB PO Q6H Levothyroxine Sodium (Levothyroxine Sodium), 1 TAB PO DAILY, (Reported) Oxybutynin Chloride (Ditropan Xl), 1 TAB PO DAILY, (Reported) Simethicone (Simethicone), 1 CAP PO Q8H Scheduled PRN Dicyclomine HCl (Dicyclomine HCl), 1 CAP PO Q8H PRN for abdominal cramps Hydrocodone Bit/Acetaminophen (Hydrocodon-Acetaminophen 5-325), 1 TAB PO Q4H PRN for MODERATE PAIN 4-6 ONDANSETRON ODT 4mg tablet (Ondansetron Odt), 1 TAB PO Q6H PRN PRN for nausea/vomiting albuterol inhaler (Pro-Air Inhaler), 1-2 PUFFS PO Q4H PRN for shortness of breath, (Reported) Miscellaneous Medications [Mvi], (Reported) Discontinued Medications Metronidazole* (Flagyl*), 1 TAB PO Q12H Discontinued Reason: Auto Discontinued Past Medical History Past Medical History: Sleep Apnea, Colon Cancer Past Surgical History: colectomy Drug Use: none Lives In: Home Review of Systems All Other Systems at this time: Reviewed and Negative Constitutional: Reports: see HPI Physical Exam Vital Signs: RN Vital Signs have been reviewed: Yes, Temperature: 97.9, Source: Oral, Heart Rate: 73, Respiratory Rate: 20, BP: 120/70, Pulse Oximetry: 95, Weight: 110.900 Oxygen Flow Rate: 0 General Appearance: alert, WD/WN, mild distress EENT: PERRL/EOMI Neck: normal inspection Respiratory: lungs clear, normal breath sounds Chest: no accessory muscle use Cardiology Exam: normal peripheral pulses Gastrointestinal: bowels sounds present, other (Diffuse mild distention without peritoneal signs) Bladder: normal Rectal: deferred Back: normal inspection Extremities: normal range of motion Psychiatric: normal mood/affect Skin: normal color Lymphatic: no adenopathy Progress Results/Orders Results/Orders Orders - MANE HARRIS PAC Ct Abdomen Pelvis (04/17/25 ) Completed Orders - MANE HARRIS PAC Ct Abdomen Pelvis (04/17/25 ) Iohexol 300mg/Ml 100ml Inj. (Omnipaque-3 (04/17/25 17:27) Simethicone Capsule (Gas Relief Capsule) (04/17/25 17:27) Simethicone Capsule (Gas Relief Capsule) (04/17/25 18:07) Normal Saline 1000ml (0.9% Sodium Chlori (04/17/25 18:20) Vital Signs 04/17/25 04/17/25 04/17/25 04/17/25 15:09 17:14 18:30 19:18 Temp 97.9 Pulse 82 73 68 60 Resp 16 20 20 19 B/P (MAP) 139/83 120/70 (87) 127/75 (92) 129/74 Pulse Ox 95 95 95 94 O2 Flow Rate 0 0 0 Laboratory Tests Test 04/17/25 15:22 04/17/25 15:25 White Blood Count 7.6 Red Blood Count 4.70 Hemoglobin 15.0 Hematocrit 44.4 Mean Corpuscular Volume 94.5 Mean Corpuscular Hemoglobin 31.9 H Mean Corpuscular Hemoglobin Concent 33.8 Red Cell Distribution Width 13.5 Platelet Count 203 Mean Platelet Volume 9.1 Neutrophils (%) (Auto) 70.0 Lymphocytes (%) (Auto) 18.3 L Monocytes (%) (Auto) 10.2 Eosinophils (%) (Auto) 1.1 Basophils (%) (Auto) 0.4 Neutrophils # (Auto) 5.3 Lymphocytes # (Auto) 1.4 Monocytes # (Auto) 0.8 Eosinophils # (Auto) 0.1 Basophils # (Auto) 0.0 CBC Comment Sodium Level 143 Potassium Level 4.0 Chloride Level 105 Carbon Dioxide Level 25.6 Anion Gap 12 Blood Urea Nitrogen 5 L Creatinine 0.83 Estimated GFR/1.73 m2 67 BUN/Creatinine Ratio 6.0 L Glucose Level 107 H Calcium Level 9.7 Total Bilirubin 0.7 Aspartate Amino Transf (AST/SGOT) 44 H Alanine Aminotransferase (ALT/SGPT) 30 Alkaline Phosphatase 67 Total Protein 7.7 Albumin 3.9 Globulin 3.8 Albumin/Globulin Ratio 1.0 L Lipase 21 Chemistry Comments Urine Specimen Description Cln catch midstream Urine Color Yellow Urine Clarity Slightly cloudy Urine pH 6.5 Urine Specific [place] 1.010 Urine Protein Negative Urine Glucose (UA) Negative Urine Ketones Trace H Urine Occult Blood Negative Urine Nitrite Negative Urine Bilirubin Small Urine Urobilinogen 0.2 Urine Leukocyte Esterase Trace H Urine RBC 0-2 Urine WBC 5-10 H Urine Squamous Epithelial Cells Many Urine Bacteria 1+ Urine Mucus Few Urine Culture Indicated Rejected for culture Volume Urine Centrifuged 10 ml Urine Comment Medical Decision Making Additional information obtaine: old records Findings 75-year-old female returns to the emergency department after completing course of antibiotics for diverticulitis that was non complicated only requiring outpatient management. Symptoms of diverticulitis and resolved your patient reports moderate discomfort and distention with excessive burping and flatulence. She is concerned she may have obstruction. Patient is two years status post colon resection due to carcinoma yet has been and had repeated colonoscopy since that time. Her primary care physician has a aligned with repeated colonoscopy pending resolution of her diverticulitis. In the emergency department today or labs were all reassuring and repeated CT imaging has also reassuring showing that the diverticulitis has resolved. Many differentials to consider please see list below. Overall patient resting comfortably in the provided her with simethicone in the emergency department as of IV hydration. We will discharge her with simethicone prescription along with dicyclomine requested she follow up with the primary care physician next 48-72 hours. Safely discharged in the emergency department with stable vital signs nontoxic presenting. Diff Dx GI Bleed:Consideration: Include: AE fistula, Angiodysplasia, Bleeding diathesis, Blood loss anemia, Carcinoma, Diverticulosis, Diverticulitis, Esophageal varicies, Esophagitis, Gastritis, Gastroenteritis, Inflammatory BD, Krystle-Gutierres syndrome, Meckel's diverticulum, PUD, Other Diff Dx Pain:Considerations: Include: AAA, -Complete, - Incomplete, -Inevitable, -Missed, -Threatened, Abruptio placentae, Angina/NC, Aortic dissection, Appendicitis, Bowel obstruction, Cholangitis, Cholecystitis, Cholelithasis, Constipation, Diverticular disease, Dysmenorrhea, Ectopic , Esophageal rupture, Esophagitis, Gastritis/PUD, Gastroenteritis, GI hemorrhage, Hernia, Hepatitis, Inflammatory BD, Ischemic bowel, Mass, Ovarian cyst/torsion, Pancreatitis, PID, Porphyria, Trauma, intr aabdominal, Urinary obstruction, Urinary tract infection, Urolithiasis, Other Diff Dx N/V/D:Considerations: Include: Appendicitis, Bowel obstruction, Dehydration, DKA, Diarrhea - bacterial, Diarrhea - parasitic, Diarrhea - viral, Diverticulitis, Diverticulosis, Drug toxicity, Electrolyte imbalance, Food poisoning, Gastroenteritis, GE reflux, GI bleed, Hepatitis, Hernia, Hypovolemia, Hypotension, Inflammatory BD, Impaction, Malnutrition, Pancreatitis, , PUD, Renal failure, Urolithiasis, Urinary obstruction, UTI, Other Diff Dx Rectal:Considerations: Include: Fissure, Fistula, Foreign body, Impaction, Perirectal abscess, Rectal prolapse, Subcutaneous abscess, Thrombosed hemorrhoid, Ulcer, UTI, Other Departure Disposition: HOME / SELF CARE / HOMELESS Impression: Primary Impression: Abdominal pain Qualified Codes: R10.84 - Generalized abdominal pain Additional Impression: Diverticulitis resolved Condition: Improved Discharge Instructions: Abdominal Pain (Nonspecific) Additional Instructions: Your CT scan obtained in the emergency department today is reassuring for resolved diverticulitis. Please keep your scheduled follow up with your primary care physician for scheduling of a colonoscopy screening. Please take medications for gas as prescribed. Return to the emergency department the interim as needed. Thank you for visiting [facility]. Referrals: NO PRIMARY CARE PROVIDER (PCP) Prescriptions Dicyclomine HCl (Dicyclomine HCl) 10 Mg Capsule 1 CAP PO Q8H PRN for abdominal cramps for 10 Days, #30 CAP Prov: MANE HARRIS PAC 04/17/25 Simethicone (Simethicone) 180 Mg Capsule 1 CAP PO Q8H for 30 Days, #30 CAP 0 Refills Prov: MANE HARRIS 04/17/25 Education Educated: Patient Educated regarding: diagnosis, treatment, prognosis, need for follow up Signature Scribe Signature: . Attestation: . MANE HARRIS PAC Apr 17, 2025 18:23
[2025-04-17] MEDS: normal saline 1000ml 1,000 ML IV ONE (18:28)
[2025-04-17 19:18] VITALS: BP 129/74; PULSE 60; RESP 19; O2SAT 94
== END 2025-04-17 19:19 | disposition home or self-care (01) ==
LOC: ER 15:01
DX: R10.32 Left lower quadrant pain (principal); G47.30 Sleep apnea, unspecified; Z85.038 Personal history of other malignant neoplasm of large intestine; Z88.0 Allergy status to penicillin; Z90.49 Acquired absence of other specified parts of digestive tract; Z79.899 Other long term (current) drug therapy
CPT/HCPCS: 36415; 74177; 80053; 81001; 83690; 85025; 96360; 99285; J7030; Q9967